=== PATIENT | female | born 1975 | race Asian ===

== ENCOUNTER 2022-05-16 21:24 | Outpatient (REF) | payer BC, SELFPAY ==
[2022-05-16 22:04] LABS: Cholesterol* 95 mg/dL (90-199); HDL Cholesterol* 38 mg/dL (>=50); LDL Cholesterol Calculated 31 mg/dL (<100); Triglycerides* 131 mg/dL (40-149)
== END 2022-05-16 21:25 | disposition home or self-care (01) ==
LOC: LAB 21:24
PROVIDERS: PCP Internal Medicine; Visit Provider Internal Medicine Cardiovascular Disease
DX: E78.00 Pure hypercholesterolemia, unspecified (principal)
CPT/HCPCS: 36415; 80061

== ENCOUNTER 2022-05-30 09:00 | Outpatient (RCR) | payer BC, SELFPAY ==
--- NOTE | 2022-09-12 13:18 | PT.OPDNX ---
PT [place] Outpatient Daily Note PT [facility] Outpatient Daily Note Start: 04/23/22 14:22 Freq: Status: Active Protocol: Document 09/12/22 11:16 BENJAMÍN (Rec: 09/12/22 13:18 BENJAMÍN [id number]) E-signed By Laura Rosa, PT PT OP Daily Progress Note Visit Information Note Type No Show Visit Number [id number] Insurance Information Insurance Name [employer] Medical Diagnosis Stress urinary incontinence Treating Diagnosis leakage of urine and stool weakness Subjective Subjective Did Kegels in June without issues. Pt had COVID X 4 weeks - month of July. Did have leaking with the COVID due to coughing Did some Kegels to try to reduce leaking during coughing = did limit. Then following COVID didn't do was much. Has been having more leaking episodes and is using pads. Frustrated that her symptoms returned. Precautions Treatment Precautions/Contraindications arthritis - psoriatic arthritis?? 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 TPR along all layers of PFM with emphasis along B entire LA, B DTP. Lengthening along LA to reduce tone. Self Care Management Training Self-Care Activity Minutes (minutes) 14 Self Care Management Training Discussion of status since last appt approx 2 months ago. Educate on coughing and need for PFM to recover. Will hold off on Kegels currently. Will try to increase walking and core routine as able. Treatment Minutes Timed Code Treatment Minutes 49 Total Treatment Time 49 Billing Units Manual Therapy Units 2 Therapeutic Exercise Units 1 Assessment/Impression Assessment/Impression Pt is having more issues with UI symptoms. Pt did have COVID last month and her symptoms started to worsen with the coughing. Did suggest pt return to HEP as able and will not work on Kegels yet at this time. Did find tone of PFM was elevated and reactive yuri along 2 and 3 layers. Good reduction in tone with the TPR. Will have pt return to PT to be able to progress back into her prior level of function. Plan of Care Physical Therapy Goals Short term goals to be achieved in 4 weeks 1. Pt will increase her voiding intervals to 8X per day with void interval of 1X per 2-4 hours, 5 out of 7 days. 2. Pt will demonstrate use of functional PFM contraction by performing a precontraction to eliminate UI during cough/sneezing, transitional movement, and squatting. 3. Will demonstrate an increase up to 8 sec PFM contraction X 10 reps for ability to reduce UI symptoms with ADLs. intermediate frame tender goals to be achieved in 12 weeks. 1. Independent with self-care program or reduction in her symptoms and improvement with functional activities. 2. Will report an 80% reduction in her UI symptoms as seen with ability to stay dry 5 out of 7 days. 3. Pt will report no leaking with coughing, sneezing, jumping, running. 4. Able to report no fecal incontinence over 2+ consecutive months. 5. Pt will report painfree intercourse, 3 out of 4 trials . Daily Plan of Care Change POC; See Comments Daily Plan of Care Comments Work on PFM to reduce tone again and progress into HEP to address core and UI symptoms as able. Will continue with up to 8-10 more sessions over the next 12 weeks. Recertification Information Provider Signature Shows Agreement With POC & Medical Necessity Physician Comment/Change Comment or Changes Physician NPI Number #
== END 2022-10-22 13:16 | disposition home or self-care (01) ==
PROVIDERS: PCP Internal Medicine; Visit Provider Physician Assistant
DX: N39.3 Stress incontinence (female) (male) (principal); Z51.89 Encounter for other specified aftercare
CPT/HCPCS: 97110; 97140

== ENCOUNTER 2022-05-30 11:19 | Outpatient (CLI) | payer BC, SELFPAY ==
--- NOTE | 2022-05-30 11:40 | CRLHL7_ITS ---
For Patients: As a result of the Century Cures Act, medical imaging exams and procedure reports are released immediately into your electronic medical record. You may view this report before your referring provider. If you have questions, please contact your health care provider. BILATERAL SCREENING MAMMOGRAM WITH COMPUTER-AIDED DETECTION AND TOMOSYNTHESIS TECHNIQUE: CC and MLO views were obtained. These mammographic images have been obtained using full-field digital technique. These mammographic images were interpreted with the benefit of computer-aided detection. Breast Tomosynthesis was used in this interpretation. COMPARISON FILM: 05/29/21, 04/28/20, 01/15/19 FINDINGS: There are scattered areas of fibroglandular density IMPRESSION: There is no radiographic evidence for malignancy. ASSESSMENT: BI-RADS Category 1: Negative RECOMMENDATION: Routine screening mammogram in 1 year. A lay language report of this examination will be provided to the patient. Elio Beatty M.D. Diagnostic Radiologist [email or web address] RODRIGO/Dictated by: Elio Beatty MD @ 05/31/2022 12:38:00 PM (Electronically Signed)
== END 2022-05-30 11:20 | disposition home or self-care (01) ==
LOC: MAMMO 11:20
PROVIDERS: PCP Internal Medicine; Visit Provider Nurse Practitioner Family
DX: Z12.31 Encounter for screening mammogram for malignant neoplasm of breast (principal)
CPT/HCPCS: 77063; 77067

== ENCOUNTER 2022-08-07 09:33 | Emergency (ER) | payer BC, SELFPAY ==
[2022-08-07 09:47] VITALS: BP 138/92; PULSE 78; RESP 18; TEMP 36.5; O2SAT 96; BMI 34.0
--- NOTE | 2022-08-07 10:45 | ED_ITS ---
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 She was late for a meeting this morning and was driving and felt some tightness in her chest a little tingling in her left upper arm at about 815 this morning. She went to the clinic got her blood pressure checked and it seemed to be better. Was sent to the ER the patient has had no recent fever chills or cough, but her daughter does have COVID. She has not had any symptoms of this, she did have a coughing spell this morning which she reports she gets at the onset of her menstrual cycle at the completion of her menstrual cycle. She has had no leg swelling edema cauda, bleeding or clotting problems, she does have a history of psoriatic arthritis. She does have generalized anxiety disorder. No leg swelling or edema no nausea or vomiting. Related Data Home Medications Medication Instructions Recorded Confirmed Fish Oil 08/07/22 aspirin 81 mg chewable tablet 81 mg PO DAILY 08/07/22 08/07/22 (Aspirin Childrens) betamethasone dipropionate 0.05 % topical PRN 08/07/22 lotion ketoconazole 2 % shampoo topical PRN 08/07/22 vit no.37-iron fum 29 mg tab PO 08/07/22 iron-folic acid 1 mg chewable tablet (PreNata) rosuvastatin 10 mg tablet 5 mg DAILY 08/07/22 Allergies Allergy/AdvReac Type Severity Reaction Status Date / Time ibuprofen Allergy Intermediate scratches Verified 08/07/22 10:03 cause hives Eggs or Egg-derived Products AdvReac Unknown Uncoded 05/14/22 14:27 Review of Systems Status of ROS: Reports: 10 or more systems reviewed and unremarkable except as noted in History and below [facility] Medical History History of gestational diabetes mellitus (GDM) Social History Smoking Status: Never smoker How often do you have a drink containing alcohol: never How often do you have six or more drinks on one occasion: Never AUDIT-C Alcohol total score: 0 Non-prescribed substance use: denies use Exam 2 Narrative: Exam Narrative: Objective: Patient is asymptomatic now Vital signs unremarkable O2 sat 96% on room air HEENT is unremarkable neck is supple Chest is clear Heart rhythm regular heart murmur no palpable chest wall pain Abdomen benign soft Extremities are no edema neurologic nonfocal good peripheral perfusion noted Skin warm and dry Const: Vital Signs, click to edit/add: Vital Signs - 24 hr 08/07/22 09:47 Temperature 97.7 F Pulse Rate [Right Pulse Oximeter] 78 Respiratory Rate 18 Blood Pressure [Ri ght Upper Arm] 138/92 H Pulse Oximetry 96 Oxygen Delivery Me thod Room Air Course Vital Signs Vital signs: Initial Vital Signs Temperature 97.7 F 08/07/22 09:47 Temperature Source Temporal Artery Scan 08/07/22 09:47 Pulse Rate 78 08/07/22 09:47 Respiratory Rate 18 08/07/22 09:47 Blood Pressure 138/92 H 08/07/22 09:47 Blood Pressure Mean 107 08/07/22 09:47 Blood Pressure Position Sitting 08/07/22 09:47 Pulse Oximetry 96 08/07/22 09:47 Oxygen Delivery Method 08/07/22 09:47 Vital Signs Temperature 97.7 F 08/07/22 09:47 Pulse Rate 78 08/07/22 09:47 Respiratory Rate 18 08/07/22 09:47 Blood Pressure 138/92 H 08/07/22 09:47 Pulse Oximetry 96 08/07/22 09:47 Oxygen Delivery Method 08/07/22 09:47 Temperature 97.7 F 08/07/22 09:47 Pulse Rate 78 08/07/22 09:47 Respiratory Rate 18 08/07/22 09:47 Blood Pressure 138/92 H 08/07/22 09:47 Pulse Oximetry 96 08/07/22 09:47 Oxygen Delivery Method 08/07/22 09:47 Medical Decision Making MDM Narrative Medical decision making narrative: Patient is a 47 year female that had a stressful event this morning, was late for a job type interview, and felt some tightness in her chest this was transient. She is asymptomatic currently. I think doing an EKG troponin laboratory studies D-dimer would be appropriate as well as LFT and heme 4 and electrolytes. Will give her aspirin 324 chewable, she has had some trouble with ibuprofen but not necessarily aspirin, as she takes aspirin on her daily medications. Disposition pending findings above. Addendum: Patient has EKG that by my read shows normal sinus rhythm, her troponin is negative, her D-dimer is negative, her COVID is still pending but she has not had COVID symptoms. She is asymptomatic, I would recommend she be discharged home rest light activity, recheck with regular doctor within the next couple of days certainly sooner return to ED sooner problems or concerns. No heavy exertional activity. Lab Data Labs: Lab Results 08/07/22 08/07/22 08/07/22 Range/Units 10:43 11:10 11:10 WBC 4.42 L (4.50-11.00) K/uL RBC 4.21 (4.00-5.20) m/uL Hgb 12.2 (12.0-16.0) gm/dL Hct 36.3 (33.0-51.0) % MCV 86 (80-100) fL MCH 29 (26-34) pg MCHC 34 (32-36) gm/dL RDW Coeff of Ericka 11.7 (11.5-15.5) % Plt Count 256 (140-440) K/uL Neut % (Auto) 70.5 (42.0-72.0) % Lymph % (Auto) 20.8 (20-44) % [place] % (Auto) 5.7 (0.0-11.0) % Eos % (Auto) 1.8 (0.0-7.0) % Baso % (Auto) 0.7 (0.0-3.0) % Neut # (Auto) 3.10 (1.7-7.0) K/uL Lymph # (Auto) 0.90 (0.90-2.90) K/uL [place] # (Auto) 0.30 (0.00-0.90) K/UL Eos # (Auto) 0.10 (0.00-0.50) K/uL Baso # (Auto) 0.00 (0.00-0.30) K/uL Abs Immat Gran (auto) 0.02 (0.00-0.30) K/uL D-Dimer Quant (PE/DVT) < 0.27 (0.00-0.50) ug/ml Sodium (135-149) mmol/L Potassium (3.6-5.1) mmol/L Chloride (96-114) mmol/L Carbon Dioxide (20-32) mmol/L BUN (5-24) mg/dL Creatinine (0.5-1.5) mg/dL Estimated Creat Clear Estimated GFR ml/min Glucose (60-115) mg/dL Calcium (8.4-10.6) mg/dL Total Bilirubin (0.1-1.5) mg/dL Direct Bilirubin (0.0-0.5) mg/dL AST (12-35) U/L ALT (4-35) U/L Alkaline Phosphatase (40-150) U/L C-Reactive Protein (0.5-1.0) mg/dL NT-Pro-B Natriuret Pep (0-125) PG/mL Total Protein (6.0-8.3) g/dL Albumin (3.3-5.0) g/dL SARS-CoV-2 (PCR) Negative SARS-CoV-2 (Negative) POC Troponin I (0.01-0.04) ng/ml 08/07/22 08/07/22 Range/Units 11:10 11:10 WBC (4.50-11.00) K/uL RBC (4.00-5.20) m/uL Hgb (12.0-16.0) gm/dL Hct (33.0-51.0) % MCV (80-100) fL MCH (26-34) pg MCHC (32-36) gm/dL RDW Coeff of Ericka (11.5-15.5) % Plt Count (140-440) K/uL Neut % (Auto) (42.0-72.0) % Lymph % (Auto) (20-44) % [place] % (Auto) (0.0-11.0) % Eos % (Auto) (0.0-7.0) % Baso % (Auto) (0.0-3.0) % Neut # (Auto) (1.7-7.0) K/uL Lymph # (Auto) (0.90-2.90) K/uL [place] # (Auto) (0.00-0.90) K/UL Eos # (Auto) (0.00-0.50) K/uL Baso # (Auto) (0.00-0.30) K/uL Abs Immat Gran (auto) (0.00-0.30) K/uL D-Dimer Quant (PE/DVT) (0.00-0.50) ug/ml Sodium 140 (135-149) mmol/L Potassium 3.9 (3.6-5.1) mmol/L Chloride 105 (96-114) mmol/L Carbon Dioxide 26 (20-32) mmol/L BUN 9 (5-24) mg/dL Creatinine 0.4 L (0.5-1.5) mg/dL Estimated Creat Clear 131.20 Estimated GFR 123 ml/min Glucose 117 H (60-115) mg/dL Calcium 9.7 (8.4-10.6) mg/dL Total Bilirubin 0.3 (0.1-1.5) mg/dL Direct Bilirubin 0.0 (0.0-0.5) mg/dL AST 68 H (12-35) U/L ALT 52 H (4-35) U/L Alkaline Phosphatase 50 (40-150) U/L C-Reactive Protein < 0.5 L (0.5-1.0) mg/dL NT-Pro-B Natriuret Pep 23 (0-125) PG/mL Total Protein 7.5 (6.0-8.3) g/dL Albumin 4.7 (3.3-5.0) g/dL SARS-CoV-2 (PCR) (Negative) POC Troponin I 0.00 L (0.01-0.04) ng/ml Discharge Plan Discharge Clinical Impression: Chest tightness Patient Disposition: Home w/ Parent or Adult Condition: Improved Additional Instructions: Light activity, no heavy exertion, follow up with primary care in 2 days, with return sooner problems or concerns or difficulty. Heart study checked out well . Continue home medications Activity Level: Light activity Discharge Diet: Regular Prescriptions: No Action betamethasone dipropionate 0.05 % lotion TOPICAL PRN Label Comments: APPLY TOPICALLY TWICE DAILY ketoconazole 2 % shampoo TOPICAL PRN Label Comments: APPLY TOPICALLY 2 TO 3 TIMES WEEKLY rosuvastatin 10 mg tablet 5 mg DAILY Label Comments: TAKE 1 TABLET (10 MG) BY MOUTH ONCE DAILY. aspirin [Aspirin Childrens] 81 mg tablet,chewable 81 mg PO DAILY PreNata 29 mg iron- 1 mg tablet,chewable PO Fish Oil Follow Up/Referrals: Melissa Pierce MD [Primary Care Provider] - Stand Alone Forms: [employer] Info Instructions
[2022-08-07] MEDS: ASPIRIN 81 MG TAB.CHEW 324 MG PO (11:11)
[2022-08-07 11:30] LABS: Basophils Percent Auto 0.7 % (0.0-3.0); Eosinophils Percent Auto 1.8 % (0.0-7.0); Hematocrit 36.3 % (33.0-51.0); Hemoglobin* 12.2 gm/dL (12.0-16.0); Immature Granulocytes Abs Auto 0.02 K/uL (0.00-0.30); Lymphocytes Percent Auto 20.8 % (20-44); Mean Corpuscular HGB Conc 34 gm/dL (32-36); Mean Corpuscular Hemoglobin 29 pg (26-34); Mean Corpuscular Volume 86 fL (80-100); Monocytes Percent Auto 5.7 % (0.0-11.0); Neutrophils Percent Auto 70.5 % (42.0-72.0); Platelet Count* 256 K/uL (140-440); RDW Coefficient of Variation % 11.7 % (11.5-15.5); Red Blood Count 4.21 m/uL (4.00-5.20); White Blood Count* 4.42 K/uL (4.50-11.00)
[2022-08-07 11:31] LABS: Slide Review Reflex No
[2022-08-07 11:39] LABS: Albumin* 4.7 g/dL (3.3-5.0); Chloride* 105 mmol/L (96-114)
[2022-08-07 11:40] LABS: Potassium* 3.9 mmol/L (3.6-5.1); Sodium* 140 mmol/L (135-149)
[2022-08-07 11:42] LABS: Creatinine* 0.4 mg/dL (0.5-1.5); Estimated Glomerular Filt Rate 123 ml/min
[2022-08-07 11:43] LABS: Alanine Aminotransferase* 52 U/L (4-35); Alkaline Phosphatase* 50 U/L (40-150); Aspartate Amino Transferase* 68 U/L (12-35); Bilirubin Total* 0.3 mg/dL (0.1-1.5); Blood Urea Nitrogen* 9 mg/dL (5-24); Calcium* 9.7 mg/dL (8.4-10.6); Carbon Dioxide* 26 mmol/L (20-32); Glucose* 117 mg/dL (60-115); Total Protein* 7.5 g/dL (6.0-8.3)
[2022-08-07 11:50] LABS: C Reactive Protein* < 0.5 mg/dL (0.5-1.0)
[2022-08-07 11:51] LABS: NT Pro B Type NatriureticPept* 23 PG/mL (0-125)
[2022-08-07 11:52] LABS: D Dimer Quantitative* < 0.27 ug/ml (0.00-0.50)
[2022-08-07 12:23] LABS: SARS PCR* Negative SARS-CoV-2 (Negative)
== END 2022-08-07 13:45 | disposition home or self-care (01) ==
PROVIDERS: Emergency Provider Family Medicine; PCP Internal Medicine
DX: R07.89 Other chest pain (principal)
CPT/HCPCS: 36415; 80048; 80076; 83880; 85025; 85379; 86140; 87635; 93005; 99284; A9270

== ENCOUNTER 2022-11-29 10:37 | Outpatient (RCR) | payer BC, SELFPAY | END 2023-05-15 23:59 | disposition home or self-care (01) | PROVIDERS: PCP Internal Medicine; Visit Provider Physician Assistant | DX: N39.3 Stress incontinence (female) (male) (principal); Z51.89 Encounter for other specified aftercare ==

== ENCOUNTER 2022-12-06 15:48 | Outpatient (CLI) | payer OTHER, SELFPAY ==
[2022-12-06 14:06] LABS: Albumin* 4.3 g/dL (3.3-5.0)
[2022-12-06 14:09] LABS: Alanine Aminotransferase* 28 U/L (4-35); Alkaline Phosphatase* 43 U/L (40-150); Aspartate Amino Transferase* 37 U/L (12-35); Bilirubin Direct* 0.2 mg/dL (0.0-0.5); Bilirubin Total* 0.4 mg/dL (0.1-1.5); Cholesterol* 164 mg/dL (90-199); Glucose* 111 mg/dL (60-115); HDL Cholesterol* 42 mg/dL (>=50); LDL Cholesterol Calculated 93 mg/dL (<100); Total Protein* 7.1 g/dL (6.0-8.3); Triglycerides* 144 mg/dL (40-149)
== END 2022-12-06 15:49 | disposition home or self-care (01) ==
PROVIDERS: PCP Internal Medicine; Visit Provider Internal Medicine
DX: Z01.419 Encounter for gynecological examination (general) (routine) without abnormal findings (principal); K76.0 Fatty (change of) liver, not elsewhere classified; R73.03 Prediabetes; E66.9 Obesity, unspecified; F41.1 Generalized anxiety disorder
CPT/HCPCS: 80061; 80076; 82947

== ENCOUNTER 2023-06-12 14:08 | Outpatient (CLI) | payer OTHER, SELFPAY ==
--- NOTE | 2023-06-12 14:40 | CRLHL7_ITS ---
For Patients: As a result of the Century Cures Act, medical imaging exams and procedure reports are released immediately into your electronic medical record. You may view this report before your referring provider. If you have questions, please contact your health care provider. BILATERAL SCREENING MAMMOGRAM WITH COMPUTER-AIDED DETECTION AND TOMOSYNTHESIS TECHNIQUE: CC and MLO views were obtained. These mammographic images have been obtained using full-field digital technique. These mammographic images were interpreted with the benefit of computer-aided detection. Breast Tomosynthesis was used in this interpretation. COMPARISON FILM: 05/30/22, 05/29/21, 04/28/20. FINDINGS: There are scattered areas of fibroglandular density IMPRESSION: There is no radiographic evidence for malignancy. ASSESSMENT: BI-RADS Category 1: Negative RECOMMENDATION: Routine screening mammogram in 1 year. A lay language report of this examination will be provided to the patient. Elio Beatty M.D. Diagnostic Radiologist [email or web address] RODRIGO/Dictated by: Elio Beatty MD @ 06/13/2023 8:39:00 AM (Electronically Signed)
== END 2023-06-12 14:09 | disposition home or self-care (01) ==
LOC: MAMMO 14:09
PROVIDERS: PCP Internal Medicine; Visit Provider Internal Medicine
DX: Z12.31 Encounter for screening mammogram for malignant neoplasm of breast (principal)
CPT/HCPCS: 77063; 77067

== ENCOUNTER 2023-06-26 13:47 | Outpatient (CLI) | payer OTHER, SELFPAY ==
[2023-06-26 23:18] LABS: Chlamydia DNA Amplified* NOT DETECTED (No Detected); GC DNA Amplified* NOT DETECTED (No Detected)
== END 2023-06-26 13:48 | disposition home or self-care (01) ==
LOC: FRMREF 13:48
PROVIDERS: PCP Internal Medicine; Visit Provider Registered Nurse
DX: Z11.3 Encounter for screening for infections with a predominantly sexual mode of transmission (principal)
CPT/HCPCS: 87491; 87591

== ENCOUNTER 2023-07-30 11:08 | Outpatient (CLI) | payer OTHER, SELFPAY ==
--- NOTE | 2023-07-30 11:00 | CRLHL7_ITS ---
For Patients: As a result of the Century Cures Act, medical imaging exams and procedure reports are released immediately into your electronic medical record. You may view this report before your referring provider. If you have questions, please contact your health care provider. CLINICAL HISTORY: atherosclerosis Comparison: Ultrasound 08/21/2020 TECHNIQUE: The carotid circulations and the vertebral arteries in the neck were examined with oconnor-scale ultrasound, color-flow and Doppler spectral analysis. Degrees of stenosis were determined using SRU 2002 Consensus Panel Criteria. FINDINGS: Sonographic images demonstrate atherosclerotic plaque formation without suspicious soft tissue mass. There was antegrade blood flow demonstrated within the vertebral arteries and the subclavian arteries demonstrated a normal triphasic waveform. The spectral Doppler tracings of the common carotid, internal and external carotid arteries demonstrate no abnormal turbulence or spectral broadening. There was no significant elevation of peak systolic blood flow which would indicate a hemodynamically-significant stenosis by SRU criteria. The ICA/CCA peak systolic velocity ratio measures 1.1 on the right and 0.8 on the left. IMPRESSION: Less than 50 percent stenosis of the internal carotid arteries bilaterally. Dictated by Elio Beatty MD @ 07/30/2023 12:31:38 PM (Electronically Signed)
== END 2023-07-30 11:09 | disposition home or self-care (01) ==
LOC: US 11:10
PROVIDERS: PCP Internal Medicine; Visit Provider Internal Medicine
DX: I65.29 Occlusion and stenosis of unspecified carotid artery (principal); I65.23 Occlusion and stenosis of bilateral carotid arteries
CPT/HCPCS: 93880

== ENCOUNTER 2023-08-11 15:00 | Outpatient (RCR) | payer OTHER, SELFPAY | END 2023-12-09 23:59 | disposition home or self-care (01) | PROVIDERS: PCP Internal Medicine; Visit Provider Internal Medicine | DX: N39.3 Stress incontinence (female) (male) (principal); Z51.89 Encounter for other specified aftercare | CPT/HCPCS: 97110; 97140; 97162; 97535 ==

== ENCOUNTER 2023-09-09 14:15 | Outpatient (RCR) | payer OTHER, SELFPAY | END 2023-11-07 09:55 | disposition home or self-care (01) | PROVIDERS: PCP Internal Medicine; Visit Provider Family Medicine | DX: M25.511 Pain in right shoulder (principal); M79.601 Pain in right arm; Z74.09 Other reduced mobility; R53.1 Weakness; Z51.89 Encounter for other specified aftercare | CPT/HCPCS: 97110; 97112; 97140; 97162 ==

== ENCOUNTER 2024-01-05 09:45 | Outpatient (CLI) | payer BC, SELFPAY | END 2024-01-05 09:46 | disposition home or self-care (01) | LOC: NFLDREF 01-17 01:52 | PROVIDERS: PCP Internal Medicine; Referring Provider Internal Medicine; Visit Provider Internal Medicine | DX: K76.0 Fatty (change of) liver, not elsewhere classified (principal); R73.03 Prediabetes | CPT/HCPCS: 80061; 80076; 82947 ==

== ENCOUNTER 2024-12-31 10:02 | Day surgery (SDC) | payer BC, SELFPAY ==
[2024-12-31 10:15] VITALS: BMI 34.3
[2024-12-31 10:39] LABS: Ur HCG Qualitative* Negative (Negative)
[2024-12-31 11:07] VITALS: BP 145/81; PULSE 80; RESP 16; TEMP 37; O2SAT 96
[2024-12-31] MEDS: LACTATED RINGERS 1000 ML 1,000 ML 100 ML IV (11:08)
[2024-12-31] MEDS: SODIUM CHLORIDE 0.9 % (FLUSH) 10 ML SYRINGE IVF (11:08)
--- NOTE | 2024-12-31 11:32 | W.PM.H&PU ---
History & Physical Update History & Physical Update H&P Reviewed and patient assessed: No changes noted
--- NOTE | 2024-12-31 11:32 | PM.ORPRC ---
Procedure Note Date of procedure: 12/31/24 Procedure: PREOPERATIVE DIAGNOSIS: 1. Right hand volar retinacular cyst POSTOPERATIVE DIAGNOSIS: 1. Right hand volar retinacular cyst PROCEDURE: 1. Right hand volar retinacular cyst excision SURGEON: Monty Browning MD. VERTICAL BORING MILL OPERATOR: Elizabeth Gilman P.A.-C. An assistant field hockey coach was critical for this case to aid in patient positioning, tissue retraction, limb manipulation/positioning, and closure. ANESTHESIA: Local anesthetic with monitored anesthesia care IMPLANTS: None TOURNIQUET: 9 min at 225 mmHg COMPLICATIONS: None SPECIMENS: Soft tissue mass measuring 1-2 mm and diameter arising from the flexor tendon sheath at the level of the 3rd finger MCP joint. Mass was removed in its entirety and sent to pathology for confirmation of diagnosis. INDICATIONS: The patient is a pleasant 49-year-old female who has history of a painful mass in the volar aspect of her hand at the base of the middle finger. MRI confirmed diagnosis of a cyst arising from the tendon sheath. Due to persistent symptoms, patient was offered surgical excision to remove the cyst and decrease pain. Prior to surgery risks and benefits were discussed with patient all questions were answered informed consent was obtained. DESCRIPTION OF PROCEDURE: Patient was seen preoperatively and operative site was marked. Patient was then brought to the operating room placed in supine position on the OR table. Monitored anesthesia care was provided by anesthesia staff. A tourniquet was placed on the patient's right arm and right upper extremity was prepped and draped in usual sterile fashion. A surgical time-out was performed confirming patient name, procedure, and location. The subcutaneous tissues overlying the palpable mass at the volar base of the middle finger were injected with combination of 0.5% bupivacaine. Operative extremity was then elevated and exsanguinated with an Esmarch, and tourniquet was inflated to 225 mmHg. A skin incision measuring approximately 1.5 cm was made longitudinally over palpable mass. Blunt dissection was used to dissect through subcutaneous tissues. The underlying flexor tendon sheath was identified and retractors were used to protect the neurovascular structures. A small cystic mass was noted to arise from the flexor tendon sheath. This mass was removed in its entirety and sent for pathology. Tourniquet was then released and hemostasis was achieved with bipolar electrocautery. Total tourniquet time was 9 minutes. Wound was the irrigated with normal saline. Skin incision was closed with 3-0 nylon horizontal mattress sutures, and a sterile dressing was applied. Patient was then transferred to the recovery room in stable condition. POSTOPERATIVE PLAN: 1. Patient will be discharged to home day of surgery. 2. They were given instructions for wound care and finger range of motion exercises. 3. Acetaminophen, ice, and elevation as needed for pain control. 4. Return to the clinic for follow-up evaluation in 10-14 days for wound check and suture removal.
[2024-12-31] MEDS: CEFAZOLIN 2 GM INJ IVP (11:35)
[2024-12-31] MEDS: BUPIVACAINE 0.5% 30 ML 9 ML INJECTION (11:41)
--- NOTE | 2024-12-31 11:50 | SUR.OPER ---
PATIENT QUESTIONS ANSWERED SATISFACTORILY PREOPERATIVELY.? PATIENT BROUGHT TO OR #3 PER CART.? Patient positioned supine on OR #3 bed.? The perioperative?team supported arms bilaterally on arm boards.? Final approval of positioning by surgeon
[2024-12-31] MEDS: NEOMYCIN/BACITRACIN/POLYMYXIN B 1 APPLIC TOPICAL (12:00)
[2024-12-31 12:15] VITALS: BP 98/70; PULSE 64; RESP 20; TEMP 36.4; O2SAT 94
--- NOTE | 2024-12-31 12:15 | W.ANESCHARGE ---
Anesthesia Charges Start Date/Time Anesthesia Start Date: 12/31/24 Anesthesia Start Time: 11:22 Stop Date/Time Anesthesia Stop Date: 12/31/24 Anesthesia Stop Time: 12:14 Coding CPT Codes CPT Codes: ANESTH LOWER ARM SURGERY - 61852 ([id number]) QK - CLINICAL GENETICIST 2-4 CNCRNT ANES PROC, QX - UPPERS EDGE BURNISHER SVC W/ MD MED DIRECTION, P3 - PATIENT W/SEVERE SYS DISEASE
--- NOTE | 2024-12-31 12:26 | W.ANESCHARGE ---
Anesthesia Charges Start Date/Time Anesthesia Start Date: 12/31/24 Anesthesia Start Time: 11:22 Stop Date/Time Anesthesia Stop Date: 12/31/24 Anesthesia Stop Time: 12:14 Coding CPT Codes CPT Codes: ANESTH LOWER ARM SURGERY - 14016 ([id number]) QK - CEMENTER MACHINE 2-4 CNCRNT ANES PROC, QX - CABLE BRAIDER SVC W/ MD MED DIRECTION, P3 - PATIENT W/SEVERE SYS DISEASE
[2024-12-31 12:30] VITALS: BP 112/78; PULSE 72; RESP 20; O2SAT 94
[2024-12-31 12:46] VITALS: BP 117/91; PULSE 74; RESP 20; TEMP 36.3; O2SAT 94
[2024-12-31 13:00] VITALS: BP 128/87; PULSE 71; RESP 20; O2SAT 98
== END 2024-12-31 13:20 | disposition home or self-care (01) ==
LOC: OR 10:04
PROVIDERS: Anesthesiology; PCP Internal Medicine; Visit Provider Orthopaedic Surgery
PROC: (CPT 26160; principal; 2024-12-31 11:30)
DX: M67.441 Ganglion, right hand (principal)
CPT/HCPCS: 26160; 01810; 81025; 88304; J0665; J0690; J2250; J2405; J2704; J3490; J7120

== ENCOUNTER 2025-01-04 12:04 | Outpatient (CLI) | payer BC, SELFPAY ==
--- NOTE | 2025-01-04 12:15 | CRLHL7_ITS ---
For Patients: As a result of the Century Cures Act, medical imaging exams and procedure reports are released immediately into your electronic medical record. You may view this report before your referring provider. If you have questions, please contact your health care provider. INDICATION: Fatty liver. TECHNIQUE: Ultrasound abdomen limited. Sonographic images of the right upper quadrant were obtained using oconnor-scale and color Doppler images. COMPARISON: None. FINDINGS: Liver: Normal in size and echotexture. Liver measures 16 cm. Diffuse increase in liver echogenicity is present. No suspicious masses. No intrahepatic biliary dilatation. Gallbladder: No mobile gallstone or findings of acute cholecystitis. There is small echogenic focus measuring 8 millimeter within the gallbladder fundus with twinkle and ring down artifact. Proximal CBD measures 4 millimeter distal CBD measures 7 millimeter. Proximal CBD Partially imaged secondary to bowel gas. Included pancreatic head and body is normal in size and echotexture without duct dilatation. Vasculature: Patent IVC. Included abdominal aorta is of normal caliber. Right kidney measures 13 centimeter. No hydronephrosis. Preserved vascularity. IMPRESSION: 1. Diffuse hepatic steatosis. 2. Small echogenic focus within the gallbladder fundus measuring 8 millimeter, most likely related to focal adenomyomatosis. Other differential includes small gallbladder polyp versus localized GB wall calcification. Attention to follow-up scan in 12 months is suggested. Dictated by Dakotah Martin MD @ 01/05/2025 10:14:56 AM (Electronically Signed)
== END 2025-01-04 12:05 | disposition home or self-care (01) ==
LOC: US 12:07
PROVIDERS: PCP Internal Medicine; Visit Provider Internal Medicine
DX: K76.0 Fatty (change of) liver, not elsewhere classified (principal); K82.9 Disease of gallbladder, unspecified
CPT/HCPCS: 76705

== ENCOUNTER 2025-01-10 08:21 | Outpatient (CLI) | payer BC, SELFPAY | END 2025-01-10 08:22 | disposition home or self-care (01) | LOC: NFLDREF 01-11 05:17 | PROVIDERS: PCP Internal Medicine; Referring Provider Internal Medicine; Visit Provider Internal Medicine | DX: R73.03 Prediabetes (principal); K76.0 Fatty (change of) liver, not elsewhere classified; E66.9 Obesity, unspecified | CPT/HCPCS: 80061; 80076; 82947 ==

== ENCOUNTER 2025-01-13 13:20 | Outpatient (CLI) | payer BC, SELFPAY | END 2025-01-13 13:21 | disposition home or self-care (01) | PROVIDERS: PCP Internal Medicine; Visit Provider Internal Medicine | DX: R53.83 Other fatigue (principal); K76.0 Fatty (change of) liver, not elsewhere classified; E66.9 Obesity, unspecified; R73.03 Prediabetes | CPT/HCPCS: 80048; 82728; 84443 ==

== ENCOUNTER 2025-02-22 13:42 | Outpatient (CLI) | payer BC, SELFPAY ==
--- NOTE | 2025-02-22 14:00 | CRLHL7_ITS ---
For Patients: As a result of the Century Cures Act, medical imaging exams and procedure reports are released immediately into your electronic medical record. You may view this report before your referring provider. If you have questions, please contact your health care provider. INDICATION: Abnormal uterine bleeding COMPARISON: 01/04/2025 TECHNIQUE: 2D oconnor scale and color Doppler images were acquired of the pelvis using a transabdominal and transvaginal approach. FINDINGS: Sonographic images demonstrate a normal size and smooth outer contour of the uterus. Uterus measures 9.4 cm in length by 4.9 cm in AP diameter by 5.8 cm in transverse dimension. The myometrium has a normal uniform echotexture. The endometrial lining measures 17.5 mm in composite thickness. IUD is present in good position within the endometrium. The right ovary measures 2.9 x 1.7 x 1.6 cm in size and the left ovary measures 4.2 x 3.9 x 3.8 cm. The ovaries demonstrate normal arterial and venous blood flow on color Doppler analysis. There are no suspicious fluid collections within the cul-de-sac. Simple circumscribed left ovarian cyst measures 3.6 x 3.6 x 3.3 cm. IMPRESSION: Normal position of an IUD within the endometrium. Endometrial thickness 17.5 millimeters. No endometrial fluid. Dictated by Elio Beatty MD @ 02/22/2025 10:14:40 PM (Electronically Signed)
== END 2025-02-22 13:43 | disposition home or self-care (01) ==
LOC: US 13:42
PROVIDERS: PCP Internal Medicine; Visit Provider Obstetrics & Gynecology
DX: N93.9 Abnormal uterine and vaginal bleeding, unspecified (principal); R93.89 Abnormal findings on diagnostic imaging of other specified body structures
CPT/HCPCS: 76830; 76856

== ENCOUNTER 2025-02-28 13:54 | Outpatient (CLI) | payer BC, SELFPAY | END 2025-02-28 13:55 | disposition home or self-care (01) | LOC: NFLDREF 03-03 23:21 | PROVIDERS: PCP Internal Medicine; Referring Provider Internal Medicine; Visit Provider Internal Medicine | DX: N93.9 Abnormal uterine and vaginal bleeding, unspecified (principal) | CPT/HCPCS: 82728 ==

== ENCOUNTER 2025-03-01 14:31 | Outpatient (CLI) | payer BC, SELFPAY ==
[2025-03-01 22:42] LABS: Chlamydia DNA Amplified* NOT DETECTED (No Detected); GC DNA Amplified* NOT DETECTED (No Detected)
== END 2025-03-01 14:32 | disposition home or self-care (01) ==
LOC: NFLDREF 14:31
PROVIDERS: PCP Internal Medicine; Visit Provider Obstetrics & Gynecology
DX: Z11.3 Encounter for screening for infections with a predominantly sexual mode of transmission (principal)
CPT/HCPCS: 87491; 87591